=== PATIENT | female | born 1960 | race Hispanic/Latino ===

== ENCOUNTER 2017-01-29 13:51 | Emergency (ER) | payer MEDICARE ==
[2017-01-29 14:06] VITALS: BP 137/81
[2017-01-29] MEDS ORDERED: BACTRIM DS PO ONE (15:58)
[2017-01-29] MEDS ORDERED: NORCO 5/325 PO ONE (15:58)
[2017-01-29] MEDS ORDERED: ZOFRAN ODT PO ONE (15:58)
--- NOTE | 2017-01-29 16:20 | Emergency Department Report ---
ED Extremity Problem HPI - General Chief complaint: Extremity Injury, Upper Stated complaint: RT ELBOW SWELLING W/PAIN/NAUSEA Time Seen by Provider: 01/29/17 15:49 Source: patient Mode of arrival: Ambulatory Limitations: Physical Limitation - History of Present Illness Initial comments: PT c/o having dry skin to her elbows for 1 year. PT states she she has noticed swelling and pain to her R fa x 3 days. PT states sometimes her dry skin itches but she does not think she injured herself by scratching. PT states it does not hurt to move her elbow. PT states she tried washing her arm with hibiclens yesterday but it was too painful. PT states she has chronic back pain and found an old Rx for ultram and tried taking a tablet last night but no relief in pain. MD Complaint: extremity pain Onset/Timin -: days(s) Location: right, elbow History of Same: No Severity scale (0 -10): 10 Quality: constant Improves with: nothing Worsens with: palpation Associated Symptoms: other (nausea ) - Related Data Home Medications Medication Instructions Recorded Confirmed Last Taken Gabapentin 300 mg PO TID 05/15/14 05/15/14 05/15/14 Solifenacin Succinate [Vesicare] 10 mg PO QDAY 05/15/14 05/15/14 05/14/14 Previous Rx's Medication Instructions Recorded Last Taken Type Acetaminophen/Codeine [Tylenol #3] 1 tab PO Q6H PRN #12 tab 01/29/17 Unknown Rx Ciprofloxacin HCl [Ciprofloxacin 500 mg PO Q12H #20 tab 01/29/17 Unknown Rx TAB] Sulfamethoxazole/Trimethoprim 1 each PO BID #20 tablet 01/29/17 Unknown Rx [Bactrim DS TAB] Allergies Allergy/AdvReac Type Severity Reaction Status Date / Time cephradine [From Anspor] Allergy Swelling Verified 01/29/17 13:58 Iodinated Contrast Media - Allergy Swelling Verified 01/29/17 13:58 IV Dye oxytetracycline Allergy Swelling Verified 01/29/17 13:58 [From Terramycin] oxytetracycline HCl Allergy Swelling Verified 01/29/17 13:58 [From Terramycin] Penicillins Allergy Swelling Verified 01/29/17 13:58 salicylates [Salicylate] Allergy Itching Verified 01/29/17 13:58 ED Review of Systems ROS: Stated complaint: RT ELBOW SWELLING W/PAIN/NAUSEA Other details as noted in HPI Comment: All other systems reviewed and negative Constitutional: denies: chills, fever Gastrointestinal: nausea. 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", suprativa hydronitis, blind in L eye - Surgical History Hx Cholecystectomy: Yes (1985) Additional Surgical History: multiple on R hip, cornea transplant, heart cath 2003, x2, cyst removed from throat - Social History Smoking Status: Current Every Day Smoker Substance Use Type: Prescribed - Medications Home Medications: Home Medications Medication Instructions Recorded Confirmed Last Taken Type Gabapentin 300 mg PO TID 05/15/14 05/15/14 05/15/14 History Solifenacin Succinate [Vesicare] 10 mg PO QDAY 05/15/14 05/15/14 05/14/14 History Acetaminophen/Codeine [Tylenol #3] 1 tab PO Q6H PRN #12 tab 01/29/17 Unknown Rx Ciprofloxacin HCl [Ciprofloxacin 500 mg PO Q12H #20 tab 01/29/17 Unknown Rx TAB] Sulfamethoxazole/Trimethoprim 1 each PO BID #20 tablet 01/29/17 Unknown Rx [Bactrim DS TAB] ED Physical Exam - General Limitations: No Limitations, Physical Limitation General appearance: alert, in no apparent distress - Head Head exam: Present: atraumatic, normocephalic, normal inspection - Eye Eye exam: Present: normal appearance. Absent: conjunctival injection - ENT ENT exam: Present: normal exam, normal external ear exam - Neck Neck exam: Present: normal inspection, full ROM - Cardiovascular Cardiovascular Exam: Present: regular rate, normal rhythm - Extremities Exam Extremities exam: Present: full ROM, tenderness, normal capillary refill - Expanded Upper Extremity Exam Right Upper Arm exam: Present: normal inspection, full ROM Elbow exam: Present: normal inspection, full ROM. Absent: tenderness Forearm Wrist exam: Present: tenderness, swelling, erythema (5 x 6 cm area of erythema, warmth and tenderness. small scab noted to site, no drainage, not fluculant ) Vascular: Present: normal capillary refill, radial pulse. Absent: vascular compromise - Back Exam Back exam: Present: normal inspection, full ROM, tenderness - Neurological Exam Neurological exam: Present: alert, oriented X3 - Psychiatric Psychiatric exam: Present: normal affect, normal mood - Skin Skin exam: Present: warm, dry, abrasion ED Course Vital Signs 01/29/17 01/29/17 01/29/17 14:00 16:00 17:00 Temperature 98.3 F Pulse Rate 77 Respiratory 18 16 16 Rate Blood Pressure 137/81 O2 Sat by Pulse 98 Oximetry - Reevaluation(s) Reevaluation #1: 01/29/17 17:10 PT aware of dx and plan of care. PT states she is also allergic to doxy and keflex. - Pulse Oximetry Interpretation Digit-Finger Initial Pulse Oximetry Readin Actions Taken: none ED Medical Decision Making - Differential Diagnosis abscess, cellutitis Critical Care Time: No Critical care attestation.: If time is entered above; I have spent that time in minutes in the direct care of this critically ill patient, excluding procedure time. ED Disposition Clinical Impression: Cellulitis Qualifiers: Site of cellulitis: extremity Site of cellulitis of extremity: upper extremity Laterality: right Qualified Code(s): L03.113 - Cellulitis of right upper limb Disposition: DISCHARGED TO HOME OR SELFCARE Is pt being admited?: No Does the pt Need Aspirin: No Condition: Stable Instructions: Cellulitis (ED) Additional Instructions: Warm compresses multiple times a day Return to ED in 2 days for recheck, sooner if worsening. Prescriptions: Acetaminophen/Codeine [Tylenol #3] 1 tab PO Q6H PRN #12 tab PRN Reason: Pain , Severe (7-10) Ciprofloxacin HCl [Ciprofloxacin TAB] 500 mg PO Q12H #20 tab Sulfamethoxazole/Trimethoprim [Bactrim DS TAB] 1 each PO BID #20 tablet Referrals: EDUARDO HOUSER JR, MD [Primary Care Provider] - 3-5 Days Time of Disposition: 17:14
== END 2017-01-29 17:29 | disposition home or self-care (01) ==
LOC: ED 13:51
DX: L03.113 Cellulitis of right upper limb (principal); Z86.73 Personal history of transient ischemic attack (TIA), and cerebral infarction without residual deficits; F17.200 Nicotine dependence, unspecified, uncomplicated; M86.8X9 Other osteomyelitis, unspecified sites; Z88.8 Allergy status to other drugs, medicaments and biological substances; Z88.0 Allergy status to penicillin
CPT/HCPCS: 99282; Q0162

== ENCOUNTER 2017-02-01 15:59 | Emergency (ER) | payer MEDICARE ==
--- NOTE | 2017-02-01 23:22 | Emergency Department Report ---
- General Chief complaint: Skin/Abscess/Foreign Body Stated complaint: RECHECK INFECTED AREA/R FOREARM Time Seen by Provider: 02/01/17 22:33 Source: patient Mode of arrival: Ambulatory Limitations: Physical Limitation - History of Present Illness Initial comments: This is a 56-year-old female well-nourished with nontoxic or ill in appearance but presents with possible insect bite to the right arm. Patient was seen here 2 days ago and was diagnosed with cellulitis and was treated with Cipro and Bactrim. Patient stated is still taking Cipro and Bactrim every day. Patient is here today because she stated that she was instructed to return to days if symptoms don't subside. Patient denies any joint pain, chest pain, fever, chills, numbness or tingling sensation, abdominal pain, joint redness, drainage , unable to move the extremity, nausea vomiting. Patient stated the site is the same and did not change or got bigger since she presented here in emergency room 2 days ago. -: Gradual, days(s) (2) Location: R hand Severity: mild Quality: burning Consistency: constant Improves with: medication (Tylenol 3) Worsens with: none Associated symptoms: denies other symptoms Treatments Prior to Arrival: none - Related Data Home Medications Medication Instructions Recorded Confirmed Last Taken Gabapentin 300 mg PO TID 05/15/14 05/15/14 05/15/14 Solifenacin Succinate [Vesicare] 10 mg PO QDAY 05/15/14 05/15/14 05/14/14 Previous Rx's Medication Instructions Recorded Last Taken Type Acetaminophen/Codeine [Tylenol #3] 1 tab PO Q6H PRN #12 tab 01/29/17 Unknown Rx Ciprofloxacin HCl [Ciprofloxacin 500 mg PO Q12H #20 tab 01/29/17 Unknown Rx TAB] Sulfamethoxazole/Trimethoprim 1 each PO BID #20 tablet 01/29/17 Unknown Rx [Bactrim DS TAB] Allergies Allergy/AdvReac Type Severity Reaction Status Date / Time cephradine [From Anspor] Allergy Swelling Verified 01/29/17 13:58 Iodinated Contrast Media - Allergy Swelling Verified 01/29/17 13:58 IV Dye oxytetracycline Allergy Swelling Verified 01/29/17 13:58 [From Terramycin] oxytetracycline HCl Allergy Swelling Verified 01/29/17 13:58 [From Terramycin] Penicillins Allergy Swelling Verified 01/29/17 13:58 salicylates [Salicylate] Allergy Itching Verified 01/29/17 13:58 Abscess Boil HPI - HPI Chief Complaint: Skin/Abscess/Foreign Body Stated Complaint: RECHECK INFECTED AREA/R FOREARM Time Seen by Provider: 02/01/17 22:33 Home Medications: Home Medications Medication Instructions Recorded Confirmed Last Taken Gabapentin 300 mg PO TID 05/15/14 05/15/14 05/15/14 Solifenacin Succinate [Vesicare] 10 mg PO QDAY 05/15/14 05/15/14 05/14/14 Previous Rx's Medication Instructions Recorded Last Taken Type Acetaminophen/Codeine [Tylenol #3] 1 tab PO Q6H PRN #12 tab 01/29/17 Unknown Rx Ciprofloxacin HCl [Ciprofloxacin 500 mg PO Q12H #20 tab 01/29/17 Unknown Rx TAB] Sulfamethoxazole/Trimethoprim 1 each PO BID #20 tablet 01/29/17 Unknown Rx [Bactrim DS TAB] Allergies/Adverse Reactions: Allergies Allergy/AdvReac Type Severity Reaction Status Date / Time cephradine [From Anspor] Allergy Swelling Verified 01/29/17 13:58 Iodinated Contrast Media - Allergy Swelling Verified 01/29/17 13:58 IV Dye oxytetracycline Allergy Swelling Verified 01/29/17 13:58 [From Terramycin] oxytetracycline HCl Allergy Swelling Verified 01/29/17 13:58 [From Terramycin] Penicillins Allergy Swelling Verified 01/29/17 13:58 salicylates [Salicylate] Allergy Itching Verified 01/29/17 13:58 ED Review of Systems ROS: Stated complaint: RECHECK INFECTED AREA/R FOREARM Other details as noted in HPI Constitutional: denies: chills, fever Eyes: denies: eye pain, eye discharge, vision change ENT: denies: ear pain, throat pain Respiratory: denies: cough, shortness of breath, wheezing Cardiovascular: denies: chest pain, palpitations Endocrine: no symptoms reported Gastrointestinal: denies: abdominal pain, nausea, diarrhea Genitourinary: denies: urgency, dysuria, discharge Musculoskeletal: denies: back pain, joint swelling, arthralgia Skin: denies: rash, lesions Neurological: denies: headache, weakness, paresthesias Psychiatric: denies: anxiety, depression Hematological/Lymphatic: denies: easy bleeding, easy bruising ED Past Medical Hx - Past Medical History Hx CVA: Yes (2009) Hx Seizures: Yes Additional medical history: bladder spasms, osteomyelitis, "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", suprativa hydronitis, blind in L eye - Surgical History Hx Cholecystectomy: Yes (1985) Additional Surgical History: multiple on R hip, cornea transplant, heart cath 2003, x2, cyst removed from throat - Social History Smoking Status: Current Every Day Smoker Substance Use Type: None - Medications Home Medications: Home Medications Medication Instructions Recorded Confirmed Last Taken Type Gabapentin 300 mg PO TID 05/15/14 05/15/14 05/15/14 History Solifenacin Succinate [Vesicare] 10 mg PO QDAY 05/15/14 05/15/14 05/14/14 History Acetaminophen/Codeine [Tylenol #3] 1 tab PO Q6H PRN #12 tab 01/29/17 Unknown Rx Ciprofloxacin HCl [Ciprofloxacin 500 mg PO Q12H #20 tab 01/29/17 Unknown Rx TAB] Sulfamethoxazole/Trimethoprim 1 each PO BID #20 tablet 01/29/17 Unknown Rx [Bactrim DS TAB] ED Physical Exam - General Limitations: Physical Limitation General appearance: alert, in no apparent distress - Head Head exam: Present: atraumatic, normocephalic - Eye Eye exam: Present: normal appearance, PERRL, EOMI Pupils: Present: normal accommodation - ENT ENT exam: Present: normal exam, normal orophraynx, mucous membranes moist, TM's normal bilaterally, normal external ear exam - Neck Neck exam: Present: normal inspection, full ROM. Absent: tenderness, meningismus, lymphadenopathy, thyromegaly - Respiratory Respiratory exam: Present: normal lung sounds bilaterally. Absent: respiratory distress, wheezes, rales, rhonchi, stridor - Cardiovascular Cardiovascular Exam: Present: regular rate, normal rhythm. Absent: systolic murmur, diastolic murmur, rubs, gallop - GI/Abdominal GI/Abdominal exam: Present: soft, normal bowel sounds. Absent: distended, tenderness, guarding, rebound, rigid - Extremities Exam Extremities exam: Present: normal inspection, full ROM, normal capillary refill. Absent: tenderness, pedal edema, joint swelling, calf tenderness - Expanded Upper Extremity Exam Right General: Present: normal inspection Shoulder Exam: Present: normal inspection, full ROM. Absent: tenderness, swelling Upper Arm exam: Present: normal inspection, full ROM. Absent: tenderness, swelling, abrasion, laceration, ecchymosis, deformity, crepidus, dislocation, erythema Elbow exam: Present: normal inspection, full ROM, tenderness (to the cellulitic area), erythema. Absent: swelling, abrasion, laceration, ecchymosis, deformity , crepidus, dislocation, effusion, pain w/ pronation/supination, tenderness over radial head Forearm Wrist exam: Present: normal inspection, full ROM. Absent: tenderness, swelling Hand Wrist exam: Present: normal inspection, full ROM. Absent: tenderness, swelling Neuro motor exam: Present: wrist extension intact Neurosensory exam: Present: 2-point discrimination, radial nerve intact, ulnar nerve intact, median nerve intact Vascular: Present: vascular compromise - Back Exam Back exam: Present: normal inspection, full ROM. Absent: tenderness, CVA tenderness (R), CVA tenderness (L), muscle spasm, paraspinal tenderness, vertebral tenderness - Neurological Exam Neurological exam: Present: alert, oriented X3 - Psychiatric Psychiatric exam: Present: normal affect, normal mood - Skin Skin exam: Present: warm, dry, intact, normal color. Absent: rash - Other Other exam information: 5 cm by 6 cm of erthema with tenderness noted. There is a small scab noted to the area with no drainage or fluculant noted. Patient denies elbow joint tenderness. Able to move elbow joint extremity with no pain and freely. ED Course Vital Signs 02/01/17 02/01/17 17:23 17:28 Temperature 98.5 F Pulse Rate 75 Respiratory 16 Rate Blood Pressure 123/80 [Left] O2 Sat by Pulse 99 Oximetry - Consultations Consultation #1: 02/01/17 23:27 Dr. Ayers has been consulted and examined the patient. Agrees to the treatment plan and d/c plan of care. ED Medical Decision Making - Medical Decision Making Ed course: This is a 56-year-old female that presents with cellulitis right posterior elbow. 1- After my physical exam, patient was instructed to continue taking Cipro and Bactrim as prescribed. 2- patient was also instructed to observe symptoms of increased swelling, pus, drainage, elbow joint pain, unable to move elbow, fever, chills, report back to emergency room as soon as possible. 3- at time time of discharge, the patient does not seem toxic or ill in appearance. No acute signs of distress noted. Patient agrees to discharge treatment plan of care. No further questions noted by the patient. Critical care attestation.: If time is entered above; I have spent that time in minutes in the direct care of this critically ill patient, excluding procedure time. ED Disposition Clinical Impression: Cellulitis Qualifiers: Site of cellulitis: extremity Site of cellulitis of extremity: upper extremity Laterality: right Qualified Code(s): L03.113 - Cellulitis of right upper limb Disposition: DISCHARGED TO HOME OR SELFCARE Is pt being admited?: No Does the pt Need Aspirin: No Condition: Stable Instructions: Cellulitis (ED) Additional Instructions: Observe symptoms of increased swelling, pus, drainage, elbow joint pain, unable to move elbow, fever, chills, report back to emergency room as soon as possible. Follow-up with your primary care doctor in 3-5 days. Continue taking a full course of antibiotics as prescribed. Referrals: EDUARDO HOUSER JR, MD [Primary Care Provider] - 3-5 Days [facility] [Outside] - 3-5 Days [facility] [Outside] - 3-5 Days HERACLIO WEIR JR, MD [Staff Physician] - 3-5 Days Forms: Work/School Release Form(ED)
[2017-02-01 23:35] VITALS: BP 132/69
== END 2017-02-01 23:34 | disposition home or self-care (01) ==
LOC: ED 15:59
DX: L03.113 Cellulitis of right upper limb (principal); I63.9 Cerebral infarction, unspecified; F17.200 Nicotine dependence, unspecified, uncomplicated; Z88.0 Allergy status to penicillin; Z88.8 Allergy status to other drugs, medicaments and biological substances; Z91.041 Radiographic dye allergy status; Z88.1 Allergy status to other antibiotic agents
CPT/HCPCS: 99282